=== PATIENT | female | born 1980 | race Native Hawaiian/Other Pacific Islander ===

== ENCOUNTER 2022-04-26 02:55 | Emergency (ER) | payer OTHER ==
[~2022-04-26] VITALS: Ht 160 cm; Wt 105.9 kg
[2022-04-26] MEDS ORDERED: ADIPEX-P37.5 MG PO (03:02)
[2022-04-26 03:35] VITALS: BP 106/74; PULSE 70; TEMP 98.1
== END 2022-04-26 03:35 | disposition home or self-care (01) ==
LOC: COL.ER 02:55
DX: L50.9 Urticaria, unspecified (principal); F17.210 Nicotine dependence, cigarettes, uncomplicated
CPT/HCPCS: J1100